=== PATIENT | male | born 1940 | race Caucasian/White ===

== ENCOUNTER 2022-09-01 09:02 | Outpatient (CLI) | payer MEDICARE, BC, SELFPAY | END 2022-09-01 09:03 | disposition home or self-care (01) | PROVIDERS: PCP Internal Medicine; Visit Provider Nurse Practitioner Family | DX: I89.0 Lymphedema, not elsewhere classified (principal); G20 Parkinson's disease; M62.81 Muscle weakness (generalized) | CPT/HCPCS: 97597; 99203 ==

== ENCOUNTER 2022-09-15 13:25 | Outpatient (CLI) | payer MEDICARE, BC, SELFPAY | END 2022-09-15 13:26 | disposition home or self-care (01) | LOC: WOUND 13:26 | PROVIDERS: PCP Internal Medicine; Visit Provider Nurse Practitioner Family | DX: I89.0 Lymphedema, not elsewhere classified (principal); G20 Parkinson's disease; M62.81 Muscle weakness (generalized) | CPT/HCPCS: 99213 ==

== ENCOUNTER 2022-10-12 21:31 | Outpatient (REF) | payer MEDICARE, BC, SELFPAY ==
[2022-10-13 09:01] LABS: PCR FLU A Negative PCR FLU A (Negative); PCR FLU B Negative PCR FLU B (Negative); SARS PCR* ND (Negative)
== END 2022-10-12 21:32 | disposition home or self-care (01) ==
LOC: LAB 21:31
PROVIDERS: PCP Internal Medicine; Visit Provider Nurse Practitioner Adult Health
DX: J10.1 Influenza due to other identified influenza virus with other respiratory manifestations (principal)
CPT/HCPCS: 87631

== ENCOUNTER 2023-07-11 08:22 | Outpatient (CLI) | payer MEDICARE, BC, SELFPAY | END 2023-07-11 08:23 | disposition home or self-care (01) | PROVIDERS: PCP Internal Medicine; Visit Provider Family Medicine | DX: R29.810 Facial weakness (principal); R53.1 Weakness; R47.01 Aphasia | CPT/HCPCS: A0425; A0427 ==

== ENCOUNTER 2023-07-11 08:44 | Emergency (ER) | payer MEDICARE, BC, SELFPAY ==
[2023-07-11] VITALS (10 sets, daily range): BP systolic 148–194; BP diastolic 72–93; PULSE 70–77; RESP 24; TEMP 36.2; O2SAT 94–96; BMI 26.5
--- NOTE | 2023-07-11 08:46 | ED_ITS ---
HPI - General Adult General Time Seen by Provider: 09:13 Date Seen: 07/11/23 Chief complaint: Neuro Symptoms/Altered Deficit Stated complaint: Neuro symptoms Time Seen by Provider: 07/11/23 08:46 Source: patient, RN notes reviewed and old records reviewed Mode of arrival: EMS Limitations: no limitations History of Present Illness HPI narrative: Reagan wu is an 83-year-old gentleman current resident at [address] [place] [address] with a history of hypertension, Parkinson's disease who is brought to the emergency room by EMS for evaluation of potential stroke. I do meet the medics in the back hallway and go immediately to CT. Patient was found this morning with inability to speak or move left side. Nursing there states that he she was working yesterday and thus they are placing last known well yesterday at noon. However, this would be hard to believe as with nursing care there would have been nighttime cares. EMS notes upon their arrival he had no movement of left arm leg and although making some sounds did not have any meaningful speech. However they note that he was following commands. No reports of recent illness or falls. Patient is unable to tell me any history at this time. No past history available here i at [facility] with the exception of some wound care. Currently attempting to get past medical history from [facility]. Related Data Allergies Allergy/AdvReac Type Severity Reaction Status Date / Time No Known Drug Allergies Allergy Verified 07/11/23 09:17 Review of Systems Status of ROS: Reports: unobtainable due to medical condition [facility] Social History Smoking Status: Unknown if ever smoked Exam Narrative: Exam Narrative: Patient is on gurney in the back hallway. Preferring to keep his eyes closed. I do ask him to open his eyes and there is effort at that. I do ask him to squeeze left hand there is no movement but right hand room and right foot do moved on command. Left eyelid is lifted and patient noted to have dysconjugate gaze with lateral and upper movement of the left eye. Pupils are equal and round. Neck is supple. Patient protecting his airway. He attempts smiling and there is some movement of the right cheek. Heart with regular rate and rhythm and lungs are clear. Abdomen soft nontender. NIHSS at least 19. Const: Vital Signs, click to edit/add: Vital Signs - 24 hr 07/11/23 08:57 07/11/23 09:01 07/11/23 09:02 Temperature 97.2 F L Pulse Rate 71 71 Pulse Rate [Pulse Oximeter] 71 Respiratory Rate 24 Blood Pressure 186/93 H Blood Pressure [Le ft Upper Arm] 179/80 H Pulse Oximetry 96 96 96 Oxygen Delivery Me thod Room Air 07/11/23 09:15 07/11/23 09:17 07/11/23 09:18 Temperature Pulse Rate 71 72 70 Pulse Rate [Pulse Oximeter] Respiratory Rate Blood Pressure 194/93 H Blood Pressure [Le ft Upper Arm] Pulse Oximetry 95 95 95 Oxygen Delivery Me thod 07/11/23 09:30 07/11/23 09:32 07/11/23 09:39 Temperature Pulse Rate 74 76 77 Pulse Rate [Pulse Oximeter] Respiratory Rate Blood Pressure 160/72 H 148/72 H Blood Pressure [Le ft Upper Arm] Pulse Oximetry 95 94 94 Oxygen Delivery Me thod 07/11/23 09:51 Temperature Pulse Rate Pulse Rate [Pulse Oximeter] Respiratory Rate Blood Pressure Blood Pressure [Le ft Upper Arm] 161/80 H Pulse Oximetry Oxygen Delivery Me thod Documenting provider has reviewed patient's vital signs: yes Course Course ED Course: At this time differential diagnosis includes but is not limited to hemorrhagic stroke, seizure, subarachnoid hemorrhage, intraparenchymal bleed. IV has been placed. Labs will be drawn to include CBC, comprehensive, magnesium, troponin. Will also obtain EKG. Reevaluation(s) Reevaluation #1: Head CT shows obvious bleed. Have contacted neurology and Dr. Muse suggest blood pressure control with nicardipine with goal of 140 systolic blood pressure. Plan for transfer to [place]. Reevaluation #2: Patient continues to maintain airway. Blood pressure improved with nicardipine. Vital Signs Vital signs: Initial Vital Signs Temperature 97.2 F L 07/11/23 08:57 Temperature Source Temporal Artery Scan 07/11/23 08:57 Pulse Rate 71 07/11/23 08:57 Respiratory Rate 24 07/11/23 08:57 Blood Pressure 179/80 H 07/11/23 08:57 Blood Pressure Mean 113 H 07/11/23 08:57 Pulse Oximetry 96 07/11/23 08:57 Oxygen Delivery Method Room Air 07/11/23 08:57 Vital Signs Temperature 97.2 F L 07/11/23 08:57 Pulse Rate 71 07/11/23 08:57 Respiratory Rate 24 07/11/23 08:57 Blood Pressure 179/80 H 07/11/23 08:57 Pulse Oximetry 96 07/11/23 08:57 Oxygen Delivery Method Room Air 07/11/23 08:57 Temperature 97.2 F L 07/11/23 08:57 Pulse Rate 77 07/11/23 09:39 Respiratory Rate 24 07/11/23 08:57 Blood Pressure 161/80 H 07/11/23 09:51 Pulse Oximetry 94 07/11/23 09:39 Oxygen Delivery Method Room Air 07/11/23 08:57 Medications Administered Medications: Generic Name Dose Route Start Last Admin Trade Name Freq PRN Reason Stop Dose Admin Nicardipine HCl 25 mg/ Sodium 250 mls @ 50 mls/hr 07/11/23 09:04 07/11/23 09:51 Chloride IVPB 75 mls/hr .TITRATE PRN Infusion Blood Pressure - High Lidocaine HCl 6 ml 07/11/23 09:20 07/11/23 09:30 Lidocaine Hcl 2 % Jelly (Top) Sterile UR 6 ml ONCE PRN Administration Medical Decision Making MDM Narrative Medical decision making narrative: 1. Hemorrhagic stroke-patient has paralysis left arm and leg. He does make attempts to speak and is following commands. Mentally appears to be aware of what is going on but unable to express himself. Patient is not currently on any blood thinners. 2. Hypertension-blood pressure upon arrival 200/100 and most recently 179/80. Per neurology request we have started nicardipine with systolic blood pressure goal of 140. Most recently blood pressure 148. 3. Disposition -to [facility] via ground ALS ambulance. Medical Records Medical records reviewed: Yes I reviewed the patient's medical records Medical records narrative: I was able to review medications but no records from [facility] are available at this time. No records here in our system with the exception of wound care. Lab Data Lab results reviewed: Yes I reviewed the patient's lab results Lab results narrative: Troponin is negative. Creatinine within normal limits. Labs: Lab Results 07/11/23 07/11/23 Range/Units 08:58 09:00 WBC 8.19 (4.50-11.00) K/uL RBC 4.27 L (4.30-5.90) m/uL Hgb 13.5 (13.5-17.5) gm/dL Hct 40.6 (37.0-53.0) % MCV 95 (80-100) fL MCH 32 (26-34) pg MCHC 33 (32-36) gm/dL RDW Coeff of Delio 12.6 (11.5-15.5) % Plt Count 164 (140-440) K/uL Neut % (Auto) 72.8 H (42.0-72.0) % Lymph % (Auto) 18.6 L (20-44) % Harvey % (Auto) 5.9 (0.0-11.0) % Eos % (Auto) 2.3 (0.0-7.0) % Baso % (Auto) 0.2 (0.0-3.0) % Neut # (Auto) 6.00 (1.7-7.0) K/uL Lymph # (Auto) 1.50 (0.90-2.90) K/uL Harvey # (Auto) 0.50 (0.00-0.90) K/UL Eos # (Auto) 0.19 (0.00-0.50) K/uL Baso # (Auto) 0.02 (0.00-0.30) K/uL Abs Immat Gran (auto) 0.02 (0.00-0.30) K/uL Imm/Tot Granulo (auto) 0.2 % Sodium 139 (135-149) mmol/L Potassium 4.0 (3.6-5.1) mmol/L Chloride 105 (96-114) mmol/L Carbon Dioxide 25 (20-32) mmol/L Anion Gap 9 (7-15) mEq/L BUN 25 (7-30) mg/dL Creatinine 0.8 (0.5-1.5) mg/dL Estimated Creat Clear 58.81 Estimated GFR 88 ml/min Glucose 104 (60-115) mg/dL Calcium 9.5 (8.4-10.6) mg/dL Magnesium 1.9 (1.5-2.6) mg/dL Total Bilirubin 0.7 (0.1-1.5) mg/dL AST 29 (12-35) U/L ALT 19 (4-50) U/L Alkaline Phosphatase 96 (40-150) U/L Total Protein 8.0 (6.0-8.3) g/dL Albumin 4.7 (3.3-5.0) g/dL POC Troponin I 0.01 (0.01-0.04) ng/ml Imaging Data CT scan - head: Attestation: I have reviewed the pertinent imaging results. My impression: By my read acute head bleed right-sided. Radiologist's impression: Large hyperattenuating parenchymal hemorrhage within the right parietal, right temporal, and right occipital lobes measuring approximately 7.1 x 5.8 x 4.7 cm (AP/CC/TR). There is moderate adjacent parenchymal edema. Mass effect results in local sulcal effacement, severe effacement of the right lateral ventricle, and 8 mm leftward midline shift. Small hyperattenuating parenchymal hemorrhages are visualized within the posterior right frontal lobe. Mild diffuse cerebral volume loss. Patchy hypoattenuation in the supratentorial white matter, typical for [id number] chronic microvascular ischemic changes. Intracranial atherosclerotic calcifications. Thinning of the ocular lenses. The calvarium is intact. Minimal paranasal sinus mucosal thickening. The mastoid air cells are clear. IMPRESSION: Large hyperattenuating parenchymal hemorrhage within the right temporoparietooccipital region associated with moderate parenchymal edema contributing to severe right lateral ventricular effacement and 8 mm leftward midline shift. ECG Data Attestation: I personally reviewed and interpreted this ECG as follows: Prior ECG tracings: not available for review Interpretation: EKG by my read shows sinus rhythm at a rate of 74. Nonspecific T-wave abnormality otherwise no acute ST or T-wave changes. Critical Care Time Critical Care Time Critical Care Time: Yes Attestation: The patient required my highest level preparedness to intervene emergently and I personally spent this critical care time directly and personally managing the patient. This critical care time included: Obtaining a history; Examining the patient; Pulse oximetry; Ordering and reviewing of studies; Arranging urgent treatment with development of a management plan; Evaluation of patients response to treatment; Frequent reassessment discussions with other providers. This critical care time was performed to assess and manage the high probability of imminent life-threatening deterioration that could result in multiorgan failure. It was exclusive of separate billable procedures and treating other patients and teaching time. Total Critical Care Time in Minutes: 60 Discharge Plan Discharge Clinical Impression: Hemorrhagic stroke Patient Disposition: Amelie Levi Condition: Critical Stand Alone [facility] Info Instructions
--- NOTE | 2023-07-11 08:52 | CRLHL7_ITS ---
For Patients: As a result of the Century Cures Act, medical imaging exams and procedure reports are released immediately into your electronic medical record. You may view this report before your referring provider. If you have questions, please contact your health care provider. INDICATION: Stroke symptoms. TECHNIQUE: Noncontrast CT images of the brain. COMPARISON: None. FINDINGS Large hyperattenuating parenchymal hemorrhage within the right parietal, right temporal, and right occipital lobes measuring approximately 7.1 x 5.8 x 4.7 cm (AP/CC/TR). There is moderate adjacent parenchymal edema. Mass effect results in local sulcal effacement, severe effacement of the right lateral ventricle, and 8 mm leftward midline shift. Small hyperattenuating parenchymal hemorrhages are visualized within the posterior right frontal lobe. Mild diffuse cerebral volume loss. Patchy hypoattenuation in the supratentorial white matter, typical for [id number] chronic microvascular ischemic changes. Intracranial atherosclerotic calcifications. Thinning of the ocular lenses. The calvarium is intact. Minimal paranasal sinus mucosal thickening. The mastoid air cells are clear. IMPRESSION: Large hyperattenuating parenchymal hemorrhage within the right temporoparietooccipital region associated with moderate parenchymal edema contributing to severe right lateral ventricular effacement and 8 mm leftward midline shift. Discussed findings with Dr. Coronado at 0917 hrs. Please note that all CT scans at this facility use dose modulation, iterative reconstruction, and/or weight-based dosing when appropriate to reduce radiation dose to as low as reasonably achievable. Dictated by Allan Gautam MD @ 07/11/2023 9:22:23 AM (Electronically Signed)
[2023-07-11] MEDS: NICARDIPINE HCL 25 MG in 0.9 % SODIUM CHLORIDE 250 ml 240 ML 50 MG IVPB (09:21)
[2023-07-11 09:27] LABS: Basophils Absolute Auto 0.02 K/uL (0.00-0.30); Basophils Percent Auto 0.2 % (0.0-3.0); Eosinophils Absolute Auto 0.19 K/uL (0.00-0.50); Eosinophils Percent Auto 2.3 % (0.0-7.0); Hematocrit 40.6 % (37.0-53.0); Hemoglobin* 13.5 gm/dL (13.5-17.5); Immature Granulocytes Abs Auto 0.02 K/uL (0.00-0.30); Immature Granulocytes Pct Auto 0.2 %; Lymphocytes Percent Auto 18.6 % (20-44); Mean Corpuscular HGB Conc 33 gm/dL (32-36); Mean Corpuscular Hemoglobin 32 pg (26-34); Mean Corpuscular Volume 95 fL (80-100); Monocytes Percent Auto 5.9 % (0.0-11.0); Neutrophils Percent Auto 72.8 % (42.0-72.0); Platelet Count* 164 K/uL (140-440); RDW Coefficient of Variation % 12.6 % (11.5-15.5); Red Blood Count 4.27 m/uL (4.30-5.90); White Blood Count* 8.19 K/uL (4.50-11.00)
[2023-07-11 09:29] LABS: Slide Review Reflex No
[2023-07-11] MEDS: lidocaine HCL 2 % JELLY (TOP) STERILE 6 ML UR (09:30)
--- NOTE | 2023-07-11 09:30 | ED.NURSE ---
16fr carter catheter placed with 10mL balloon.
[2023-07-11 09:32] LABS: Albumin* 4.7 g/dL (3.3-5.0); Chloride* 105 mmol/L (96-114); Sodium* 139 mmol/L (135-149)
[2023-07-11 09:33] LABS: Troponin, Point-of-Care* 0.01 ng/ml (0.01-0.04)
[2023-07-11 09:34] LABS: Bilirubin Total* 0.7 mg/dL (0.1-1.5); Creatinine* 0.8 mg/dL (0.5-1.5); Est. Creatinine Clearance* 58.81; Estimated Glomerular Filt Rate 88 ml/min
[2023-07-11 09:35] LABS: Alanine Aminotransferase* 19 U/L (4-50); Alkaline Phosphatase* 96 U/L (40-150); Anion Gap 9 mEq/L (7-15); Aspartate Amino Transferase* 29 U/L (12-35); Blood Urea Nitrogen* 25 mg/dL (7-30); Calcium* 9.5 mg/dL (8.4-10.6); Carbon Dioxide* 25 mmol/L (20-32); Glucose* 104 mg/dL (60-115)
[2023-07-11 09:36] LABS: Magnesium* 1.9 mg/dL (1.5-2.6)
== END 2023-07-11 10:01 | disposition short-term general hospital (02) ==
PROVIDERS: Emergency Provider Family Medicine; PCP Internal Medicine
DX: I61.9 Nontraumatic intracerebral hemorrhage, unspecified (principal); I10 Essential (primary) hypertension
CPT/HCPCS: 36415; 70450; 80053; 83735; 84484; 85025; 93005; 99285; 99291; J7050

== ENCOUNTER 2023-07-11 09:32 | Outpatient (CLI) | payer MEDICARE, BC, SELFPAY | END 2023-07-11 09:33 | disposition home or self-care (01) | LOC: AMB 07-16 17:43 | PROVIDERS: PCP Internal Medicine; Visit Provider Family Medicine | DX: I61.9 Nontraumatic intracerebral hemorrhage, unspecified (principal) | CPT/HCPCS: A0425; A0427 ==